=== PATIENT | female | born 1960 | race Caucasian/White ===

== ENCOUNTER → 2022-09-12 | Day surgery (SDC) | payer BC ==
[~2022-09-12] MED LIST: Lactated Ringers 1,000 ML IV SCH; Propofol 200 MG/20 ML SDV ONE; fentaNYL 50 MCG/ML SDV ONE
== END ==
LOC: CC.SDS 11:50
PROVIDERS: ATTEND Family Medicine
DX: Z12.11 Encounter for screening for malignant neoplasm of colon (principal); K62.1 Rectal polyp; K64.9 Unspecified hemorrhoids; M81.0 Age-related osteoporosis without current pathological fracture; Z88.2 Allergy status to sulfonamides; Z79.899 Other long term (current) drug therapy
CPT/HCPCS: J2704; J3010; J7120

== ENCOUNTER → 2023-07-16 | Day surgery (SDC) | payer BC ==
[~2023-07-16] MED LIST changes: +Dexamethasone 4 MG/ML SDV ONE; +Ketorolac 30 MG/ML SDV ONE; +Lidocaine 1% 30 ML SDV INJECT ONE; +Midazolam 1 MG/ML 2 ML SDV ONE; +Ondansetron 4 MG/2 ML SDV ONE
== END ==
LOC: CC.SDS 07:50
PROVIDERS: ATTEND Surgery
DX: K43.9 Ventral hernia without obstruction or gangrene (principal); I47.10 Supraventricular tachycardia, unspecified; M81.0 Age-related osteoporosis without current pathological fracture; Z72.0 Tobacco use; Z79.899 Other long term (current) drug therapy; Z88.2 Allergy status to sulfonamides; Z88.8 Allergy status to other drugs, medicaments and biological substances
CPT/HCPCS: J1100; J1885; J2250; J2405; J2704; J3010; J3490; J7120